=== PATIENT | female | born 1990 | race Caucasian/White ===

== ENCOUNTER 2020-07-06 14:48 | Emergency (ER) | payer MEDICAID ==
[2020-07-06] MEDS ORDERED: predniSONE 20 MG Tab PO ONE (14:49)
[2020-07-06] MEDS ORDERED: Acetaminophen/HYDROcodone 325-5 MG Tab PO ONE (14:49)
--- NOTE | 2020-07-06 15:25 | EDM.PDOC ---
ED HPI GENERAL MEDICAL PROBLEM - General Chief Complaint: Genitourinary Problem Stated Complaint: IN LOTS OF PAIN Time Seen by Provider: 07/06/20 15:20 Source of Information: Reports: Patient History Limitations: Reports: No Limitations - History of Present Illness INITIAL COMMENTS - FREE TEXT/NARRATIVE: pt with renal calculi , was seen on ................ and had Ct abd odne that confirmed 2 stones . one about 5-6 mm pt has not been able to pass stone, has pain in the flank radiating to the groin area Onset: Today Onset Date: 06/30/20 Duration: Getting Worse Location: Reports: Abdomen, Back Quality: Reports: Ache, Dull Improves with: Reports: Heat Therapy Worsens with: Reports: Movement Associated Symptoms: Reports: Malaise. 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) Right Lower Abdomen Pain Score (Numeric/FACES): 10 - Related Data Allergies Allergy/AdvReac Type Severity Reaction Status Date / Time codeine Allergy Other Verified 07/06/20 15:20 Home Meds: Home Meds Gabapentin [Neurontin] 600 mg PO DAILY 07/06/20 [History] Hydrocodone/Acetaminophen [Hydrocodon-Acetaminophen 5-325] 1 each PO Q6HR #10 tablet 07/06/20 [Rx] Tamsulosin [Tamsulosin 24 Hr] 0.4 mg PO DAILY #30 cap.er 07/06/20 [Rx] predniSONE [Prednisone] 40 mg PO DAILY #10 tablet 07/06/20 [Rx] ED ROS GENERAL - Review of Systems Review Of Systems: See Below Constitutional: Reports: No Symptoms, Fever, Malaise, Weakness, Fatigue. Denies: Chills HEENT: Reports: No Symptoms Respiratory: Reports: No Symptoms Cardiovascular: Reports: No Symptoms Endocrine: Reports: Fatigue GI/Abdominal: Reports: Abdominal Pain : Reports: Hematuria, Pain Musculoskeletal: Reports: Back Pain Skin: Reports: No Symptoms Neurological: Reports: No Symptoms Psychiatric: Reports: No Symptoms Hematologic/Lymphatic: Reports: No Symptoms ED EXAM, RENAL/ - Physical Exam Exam: See Below Exam Limited By: No Limitations General Appearance: Alert, WD/WN, Mild Distress (due to pain) Eye Exam: Bilateral Eye: EOMI Ears: Normal External Exam Nose: Normal Inspection Throat/Mouth: Normal Oropharynx Neck: Normal Inspection, Supple, Non-Tender Respiratory/Chest: Lungs Clear Cardiovascular: Regular Rate, Rhythm GI/Abdominal: Soft, Non-Tender Neurological: Alert, Oriented, CN II-XII Intact Psychiatric: Normal Affect, Normal Mood Skin Exam: Warm, Dry, Intact Lymphatic: No Adenopathy Course - Vital Signs Last Recorded V/S: Last Vital Signs Temp 36.3 C 07/06/20 15:00 Pulse 70 07/06/20 15:00 Resp 20 07/06/20 15:00 BP 142/91 H 07/06/20 15:00 Pulse Ox 99 07/06/20 15:00 - Orders/Labs/Meds Orders: Active Orders 24 hr Category Date Time Status Abdomen Pelvis wo Cont [CT] Stat Exams 07/06/20 15:23 Taken Sodium Chloride 0.9% [Normal Saline] 1,000 ml Med 07/06/20 15:30 Active IV ASDIRECTED Sodium Chloride 0.9% [Saline Flush] Med 07/06/20 15:30 Active 10 ml FLUSH ASDIRECTED PRN Medication Orders Sodium Chloride (Normal Saline) 1,000 mls @ 999 mls/hr IV ASDIRECTED KIET Last Admin: 07/06/20 15:36 Dose: 999 mls/hr Documented by: SUN Sodium Chloride (Saline Flush) 10 ml FLUSH ASDIRECTED PRN PRN Reason: IV Use Last Admin: 07/06/20 15:30 Dose: 10 ml Documented by: SUN Labs: Laboratory Tests 07/06/20 07/06/20 Range/Units 17:10 17:10 WBC 10.4 H (3.0-10.3) x10-3/uL RBC 4.32 (3.60-5.20) x10(6)uL Hgb 13.4 (11.4-15.5) g/dL Hct 40.2 (34.2-48.2) % MCV 93.1 (76.7-100.5) fL MCH 30.9 (23.9-33.9) pg MCHC 33.2 (31.9-34.8) g/dL RDW 13.1 (12.3-16.5) % Plt Count 383 (151-488) x10(3)uL MPV 7.5 (7.1-12.4) fL Neut % (Auto) 65.7 (30.8-76.2) % Lymph % (Auto) 20.6 (18.4-52.1) % Young % (Auto) 5.6 (4.4-15.7) % Eos % (Auto) 7.2 (0.6-8.1) % Baso % (Auto) 0.9 (0.2-1.5) % Neut # (Auto) 6.8 H (1.5-6.3) x10-3/uL Lymph # (Auto) 2.1 (1.0-4.4) x10-3/uL Young # (Auto) 0.6 (0.3-1.0) x10-3/uL Eos # (Auto) 0.7 (0.0-0.8) x10-3/uL Baso # (Auto) 0.1 (0.0-0.1) x10-3/uL Sodium 139 (135-145) mmol/L Potassium 4.1 (3.5-5.3) mmol/L Chloride 105 (100-110) mmol/L Carbon Dioxide 27 (21-32) mmol/L BUN 12 (7-18) mg/dL Creatinine 1.2 H (0.55-1.02) mg/dL Est Cr Clr Drug Dosing 56.19 mL/min Estimated GFR (MDRD) 52 L (>60) BUN/Creatinine Ratio 10.0 (9-20) Glucose 97 (80-116) mg/dL Calcium 8.0 L (8.6-10.2) mg/dL Meds: Medications Generic Name Dose Route Start Last Admin Trade Name Freq PRN Reason Stop Dose Admin Sodium Chloride 1,000 mls @ 999 mls/hr 07/06/20 15:30 07/06/20 15:36 Normal Saline IV 999 mls/hr ASDIRECTED KIET Administration Sodium Chloride 10 ml 07/06/20 15:30 07/06/20 15:30 Saline Flush FLUSH 10 ml ASDIRECTED PRN Administration IV Use Discontinued Medications Generic Name Dose Route Start Last Admin Trade Name Freq PRN Reason Stop Dose Admin Hydrocodone Bitart/Acetaminophen 1 tab 07/06/20 17:23 07/06/20 17:32 Almyra 325-5 Mg PO 07/06/20 17:24 1 tab ONETIME ONE Administration Ketorolac Tromethamine 30 mg 07/06/20 15:21 07/06/20 15:36 Toradol IVPUSH 07/06/20 15:22 30 mg ONETIME ONE Administration Methylprednisolone Sodium Succinate 125 mg 07/06/20 16:17 07/06/20 16:27 Solu-Medrol IM 07/06/20 16:18 Not Given ONETIME ONE Methylprednisolone Sodium Succinate 125 mg 07/06/20 16:26 07/06/20 16:27 Solu-Medrol IVPUSH 07/06/20 16:27 125 mg ONETIME ONE Administration Morphine Sulfate 2 mg 07/06/20 15:22 07/06/20 15:36 Morphine IVPUSH 07/06/20 15:23 2 mg ONETIME ONE Administration Tamsulosin HCl 0.4 mg 07/06/20 16:16 07/06/20 16:27 Flomax PO 07/06/20 16:17 0.4 mg ONETIME ONE Administration - Re-Assessments/Exams Free Text/Narrative Re-Assessment/Exam: 07/06/20 16:46 pt givne ivf toradol , flomax ans solumedrol CT of the abd done: still has 5mm stone in the right UVJ 3mm stone in the left kidney pain level did improve will be discharged home to follow up with urologist Departure - Departure Time of Disposition: 17:40 Disposition: Home, Self-Care 01 Condition: Fair Clinical Impression: Renal calculus, bilateral, Hydronephrosis - Discharge Information *PRESCRIPTION DRUG MONITORING PROGRAM REVIEWED*: Not Applicable *COPY OF PRESCRIPTION DRUG MONITORING REPORT IN PATIENT DALE: Not Applicable Prescriptions: Tamsulosin [Tamsulosin 24 Hr] 0.4 mg PO DAILY #30 cap.er Hydrocodone/Acetaminophen [Hydrocodon-Acetaminophen 5-325] 1 each PO Q6HR #10 tablet predniSONE [Prednisone] 40 mg PO DAILY #10 tablet Instructions: Kidney Stones, [id number], Hydronephrosis Referrals: PCP,None [Primary Care Provider] - Forms: ED Department Discharge Additional Instructions: Keep increased fluid intake Keep appointment with Urologist on Tueday Call ER with any concerns Sepsis Event Note (ED) - Focused Exam Vital Signs: Vital Signs Temp Pulse Resp BP Pulse Ox 07/06/20 15:00 36.3 C 70 20 142/91 H 99 - My Orders Last 24 Hours: My Active Orders 07/06/20 15:23 Abdomen Pelvis wo Cont [CT] Stat 07/06/20 15:30 Sodium Chloride 0.9% [Normal Saline] 1,000 ml IV ASDIRECTED Sodium Chloride 0.9% [Saline Flush] 10 ml FLUSH ASDIRECTED PRN - Assessment/Plan Last 24 Hours: My Active Orders 07/06/20 15:23 Abdomen Pelvis wo Cont [CT] Stat 07/06/20 15:30 Sodium Chloride 0.9% [Normal Saline] 1,000 ml IV ASDIRECTED Sodium Chloride 0.9% [Saline Flush] 10 ml FLUSH ASDIRECTED PRN
[2020-07-06] MEDS: Sodium Chloride 0.9% 10 ML Syringe FLUSH PRN (15:30)
[2020-07-06] MEDS: Morphine 2 MG/ML SYRINGE IVPUSH ONE (15:36)
[2020-07-06] MEDS: Sodium Chloride 0.9% 1,000 ML IV SCH (15:36)
[2020-07-06] MEDS: Ketorolac 30 MG/ML SDV IVPUSH ONE (15:36)
[2020-07-06] MEDS: methylPREDNISolone Sodium Succinate 125 MG/2 ML SDV IM ONE (16:27)
[2020-07-06] MEDS: Tamsulosin 0.4 MG Cap.ER PO ONE (16:27)
[2020-07-06] MEDS: methylPREDNISolone Sodium Succinate 125 MG/2 ML SDV IVPUSH ONE (16:27)
[2020-07-06] MEDS: Acetaminophen/HYDROcodone 325-5 MG Tab PO ONE (17:32)
== END 2020-07-06 18:00 | disposition home or self-care (01) ==
LOC: FB.ED 14:48
DX: N13.2 Hydronephrosis with renal and ureteral calculous obstruction (principal); Z88.5 Allergy status to narcotic agent; Z79.899 Other long term (current) drug therapy
CPT/HCPCS: 36415; 74176; 80048; 85025; 96374; 96375; 99284; A9270; J1885; J2270; J2930; J7030; J7512

== ENCOUNTER 2020-10-13 22:49 | Emergency (ER) | payer MEDICAID ==
[2020-10-13] MEDS ORDERED: guaiFENesin/Dextromethorphan 100-10 MG/5 ML Soln 5 ML Cup PO STA (23:11)
--- NOTE | 2020-10-13 23:11 | EDM.PDOC ---
ED HPI GENERAL MEDICAL PROBLEM - General Stated Complaint: BAD HEAD COLD Time Seen by Provider: 10/13/20 23:00 Source of Information: Reports: Patient History Limitations: Reports: No Limitations - History of Present Illness INITIAL COMMENTS - FREE TEXT/NARRATIVE: States she has been ill for about one week with cold symptoms. 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 - Related Data Allergies Allergy/AdvReac Type Severity Reaction Status Date / Time codeine Allergy Other Verified 07/06/20 15:20 Home Meds: Home Meds Gabapentin [Neurontin] 600 mg PO DAILY 07/06/20 [History] Hydrocodone/Acetaminophen [Hydrocodon-Acetaminophen 5-325] 1 each PO Q6HR #10 tablet 07/06/20 [Rx] Tamsulosin [Tamsulosin 24 Hr] 0.4 mg PO DAILY #30 cap.er 07/06/20 [Rx] predniSONE [Prednisone] 40 mg PO DAILY #10 tablet 07/06/20 [Rx] Azithromycin [Zithromax] 500 mg PO DAILY #6 tab 10/14/20 [Rx] Benzonatate [Tessalon Perle] 100 mg PO TID #30 capsule 10/14/20 [Rx] guaiFENesin [Guaifenesin ER] 600 mg PO BID #30 tab.er.12h 10/14/20 [Rx] predniSONE [Prednisone] 20 mg PO DAILY #5 tablet 10/14/20 [Rx] Past Medical History Genitourinary History: Reports: Hydronephrosis, Renal Calculus Social & Family History - Caffeine Use Caffeine Use: Reports: Soda ED ROS ENT - Review of Systems Review Of Systems: See Below Constitutional: Reports: Fever, Chills, Malaise, Weakness, Fatigue HEENT: Reports: Sinus Problem Respiratory: Reports: Cough Cardiovascular: Reports: No Symptoms Endocrine: Reports: No Symptoms GI/Abdominal: Reports: No Symptoms Musculoskeletal: Reports: No Symptoms Skin: Reports: No Symptoms Neurological: Reports: No Symptoms Psychiatric: Reports: No Symptoms ED EXAM, ENT - Physical Exam Exam: See Below Exam Limited By: No Limitations General Appearance: Alert, WD/WN, No Apparent Distress Eye Exam: Bilateral Eye: EOMI Ears: TM Bulging Nose: Nasal Discharge, Nasal Tenderness Mouth/Throat: Pharyngeal Erythema, Throat Pain, Tonsillar Erythema Head: Atraumatic, Normocephalic Neck: Supple, Non-Tender Respiratory/Chest: Lungs Clear, Normal Breath Sounds Cardiovascular: Regular Rate, Rhythm GI/Abdominal: Soft, Non-Tender Back: Normal Inspection, Full Range of Motion Extremities: Normal Inspection Neurological: Alert, Oriented, CN II-XII Intact, Normal Cognition Psychiatric: Normal Affect, Normal Mood Skin: Warm, Dry, Intact Lymphatic: No Adenopathy Course - Orders/Labs/Meds Labs: Laboratory Tests 10/13/20 Range/Units 23:15 SARS-CoV-2 RNA (SAMANTA) Negative (NEGATIVE) Meds: Medications Discontinued Medications Generic Name Dose Route Start Last Admin Trade Name Kristin PRN Reason Stop Dose Admin Guaifenesin/Phenylephrine HCl 10 ml 10/13/20 23:11 10/13/20 23:41 Guaifenesin/Dextromethorphan 100-10 Mg/5 Ml Soln 5 Ml Cup PO 10/13/20 23:12 10 ml NOW STA Administration - Re-Assessments/Exams Free Text/Narrative Re-Assessment/Exam: 10/14/20 00:52 pt screened for COVID : negative will treat as sinusitis Departure - Departure Time of Disposition: 01:00 Disposition: Home, Self-Care 01 Condition: Fair Clinical Impression: Maxillary sinusitis, acute - Discharge Information *PRESCRIPTION DRUG MONITORING PROGRAM REVIEWED*: Not Applicable *COPY OF PRESCRIPTION DRUG MONITORING REPORT IN PATIENT DALE: Not Applicable Instructions: Sinusitis, Adult, [id number] Forms: ED Return to Work/School Form Additional Instructions: 1) continue with ibuprofen 600mg 3 times daily as needed 2) Warm compress to the affected areas of the face 3) Follow up with your PCP
[2020-10-14] MEDS ORDERED: Azithromycin 500 MG Tab PO ONE (00:44)
== END 2020-10-14 01:10 | disposition home or self-care (01) ==
LOC: FB.ED 22:49
DX: J01.00 Acute maxillary sinusitis, unspecified (principal); Z20.822 Contact with and (suspected) exposure to COVID-19; Z88.5 Allergy status to narcotic agent; Z79.899 Other long term (current) drug therapy
CPT/HCPCS: 99283; A9270-GY; U0002

== ENCOUNTER 2021-06-08 17:42 | Emergency (ER) | payer MEDICAID ==
[2021-06-08] MEDS ORDERED: Ondansetron 4 MG Tab.DIS PO ONE (18:10)
[2021-06-08] MEDS ORDERED: Albuterol/Ipratropium 3.0-0.5 MG/3 ML Neb Soln NEB ONE (18:10)
--- NOTE | 2021-06-08 19:48 | EDM.PDOC ---
ED HPI GENERAL MEDICAL PROBLEM - General Chief Complaint: Respiratory Problem Stated Complaint: COVID Time Seen by Provider: 06/08/21 18:10 Source of Information: Reports: Patient History Limitations: Reports: No Limitations - History of Present Illness INITIAL COMMENTS - FREE TEXT/NARRATIVE: Patient presented to the ED because of N/V/D, cough and cold for 2 days. She also c/o dyspnea even with oxygen saturation of 92% on RA. - Related Data Allergies Allergy/AdvReac Type Severity Reaction Status Date / Time codeine Allergy Throat Verified 10/14/20 04:11 [facility] Home Meds: Home Meds Gabapentin [Neurontin] 600 mg PO BEDTIME 07/06/20 [History] Albuterol Sulfate [Albuterol Sulfate Hfa] 2 puff INH Q4H PRN 10/14/20 [History] Azithromycin [Zithromax] 500 mg PO DAILY #6 tab 10/14/20 [Rx] Benzonatate [Tessalon Perle] 100 mg PO TID #30 capsule 10/14/20 [Rx] Ibuprofen 200 mg PO ASDIRECTED PRN 10/14/20 [History] Sertraline [Zoloft] 100 mg PO DAILY 10/14/20 [History] guaiFENesin [Guaifenesin ER] 600 mg PO BID #30 tab.er.12h 10/14/20 [Rx] predniSONE [Prednisone] 20 mg PO DAILY #5 tablet 10/14/20 [Rx] Albuterol/Ipratropium [DuoNeb 3.0-0.5 MG/3 ML] 3 ml INH Q4H PRN #90 ml 06/08/21 [Rx] Past Medical History Respiratory History: Reports: Bronchitis, Recurrent Genitourinary History: Reports: Hydronephrosis, Renal Calculus, Other (See Below) Neurological History: Reports: Other (See Below) Other Neuro History: Restless legs, takes Gabapentin. - Infectious Disease History Infectious Disease History: Reports: Chicken Pox - Past Surgical History HEENT Surgical History: Reports: Tonsillectomy Female Surgical History: Reports: Ureteral Stent Social & Family History - Tobacco Use Tobacco Use Status *Q: Current Every Day Tobacco User Years of Tobacco use: 8 Packs/Tins Daily: 0.5 - Caffeine Use Caffeine Use: Reports: Soda ED ROS GENERAL - Review of Systems Review Of Systems: See Below Constitutional: Reports: No Symptoms HEENT: Reports: No Symptoms Respiratory: Reports: Shortness of Breath, Cough Cardiovascular: Reports: No Symptoms Endocrine: Reports: No Symptoms GI/Abdominal: Reports: Diarrhea, Nausea, Vomiting : Reports: No Symptoms Musculoskeletal: Reports: No Symptoms Skin: Reports: No Symptoms Neurological: Reports: No Symptoms ED EXAM, GENERAL - Physical Exam Exam: See Below Exam Limited By: No Limitations General Appearance: Alert, No Apparent Distress Ears: Normal External Exam, Normal Canal, Hearing Grossly Normal Nose: Nasal Drainage Throat/Mouth: Normal Inspection, Normal Lips, Normal Teeth, Normal Gums, Normal Oropharynx, Normal Voice Head: Atraumatic, Normocephalic Neck: Normal Inspection, Supple, Non-Tender, Full Range of Motion Respiratory/Chest: No Respiratory Distress, Rhonchi, Wheezing Cardiovascular: Normal Peripheral Pulses, Regular Rate, Rhythm, No Edema, No Gallop, No JVD, No Murmur, No Rub GI/Abdominal: Normal Bowel Sounds, Soft, Non-Tender, No Organomegaly, No Distention, No Abnormal Bruit, No Mass, Pelvis Stable Back Exam: Normal Inspection, Full Range of Motion Extremities: Normal Inspection, Normal Range of Motion, Non-Tender, No Pedal Edema, Normal Capillary Refill Neurological: Alert, Oriented, CN II-XII Intact Psychiatric: Normal Affect, Normal Mood Skin Exam: Warm Course - Vital Signs Text/Narrative:: Lab result was reviewed and discussed with patient Zofran ODT 4 mg PO x1 Duoneb x1 Last Recorded V/S: Last Vital Signs Temp 36.9 C 06/08/21 17:55 Pulse 116 H 06/08/21 18:19 Resp 18 06/08/21 17:55 BP 119/61 06/08/21 17:55 Pulse Ox 93 L 06/08/21 17:55 - Orders/Labs/Meds Labs: Laboratory Tests 06/08/21 Range/Units 19:08 SARS-CoV-2 RNA (SAMANTA) Negative (NEGATIVE) Meds: Medications Discontinued Medications Generic Name Dose Route Start Last Admin Trade Name Freq PRN Reason Stop Dose Admin Albuterol/Ipratropium 3 ml 06/08/21 18:10 06/08/21 18:19 Albuterol/Ipratropium 3.0-0.5 Mg/3 Ml Neb Soln NEB 06/08/21 18:11 3 ml ONETIME ONE Administration Ondansetron HCl 4 mg 06/08/21 18:10 06/08/21 18:19 Ondansetron 4 Mg Tab.Dis PO 06/08/21 18:11 4 mg ONETIME ONE Administration Departure - Departure Time of Disposition: 19:40 Disposition: Home, Self-Care 01 Condition: Good Clinical Impression: Acute bronchitis, Gastroenteritis - Discharge Information Prescriptions: Albuterol/Ipratropium [DuoNeb 3.0-0.5 MG/3 ML] 3 ml INH Q4H PRN #90 ml PRN Reason: shortness of breath Instructions: Acute Bronchitis, Adult, [id number] Referrals: PCP,None [Primary Care Provider] - Forms: ED Department Discharge Additional Instructions: Please read discharge instructions on acute bronchitis and viral gastroenteritis Increase oral fluids 2 liters daily Frequent hand washing Imodium 2 tablets Q 6 H as needed for loose stools Duoneb every 4-6 hours as needed for shortness of breath Follow up as needed
== END 2021-06-08 20:00 | disposition home or self-care (01) ==
LOC: FB.ED 17:42
DX: K52.9 Noninfective gastroenteritis and colitis, unspecified (principal); J20.9 Acute bronchitis, unspecified; Z88.5 Allergy status to narcotic agent; Z72.0 Tobacco use; Z20.822 Contact with and (suspected) exposure to COVID-19
CPT/HCPCS: 71045; 87635; 87804; 94640; 99285; A9270; J7620-GY; U0002

== ENCOUNTER 2021-07-20 18:23 | Emergency (ER) | payer MEDICAID ==
--- NOTE | 2021-07-20 19:05 | EDM.PDOC ---
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 She is due in September 2021. This is her first . She has had a circumferential wheezing tightness/pain in her lower abdomen worse on the right than on the left. These sensations started early this morning but have increased in intensity and frequency and now are approximately 10 minutes apart. She denies fever, chills, chest pain, shortness of breath, change in bowel or bladder habits. she is not aware of any vaginal discharge or bleeding. - Related Data Allergies Allergy/AdvReac Type Severity Reaction Status Date / Time codeine Allergy Throat Verified 10/14/20 04:11 [facility] Home Meds: Home Meds Gabapentin [Neurontin] 600 mg PO BEDTIME 07/06/20 [History] Albuterol Sulfate [Albuterol Sulfate Hfa] 2 puff INH Q4H PRN 10/14/20 [History] Azithromycin [Zithromax] 500 mg PO DAILY #6 tab 10/14/20 [Rx] Benzonatate [Tessalon Perle] 100 mg PO TID #30 capsule 10/14/20 [Rx] Ibuprofen 200 mg PO ASDIRECTED PRN 10/14/20 [History] Sertraline [Zoloft] 100 mg PO DAILY 10/14/20 [History] guaiFENesin [Guaifenesin ER] 600 mg PO BID #30 tab.er.12h 10/14/20 [Rx] predniSONE [Prednisone] 20 mg PO DAILY #5 tablet 10/14/20 [Rx] Albuterol/Ipratropium [DuoNeb 3.0-0.5 MG/3 ML] 3 ml INH Q4H PRN #90 ml 06/08/21 [Rx] Past Medical History Respiratory History: Reports: Bronchitis, Recurrent Genitourinary History: Reports: Hydronephrosis, Renal Calculus, Other (See Below) Neurological History: Reports: Other (See Below) Other Neuro History: Restless legs, takes Gabapentin. - Infectious Disease History Infectious Disease History: Reports: Chicken Pox - Past Surgical History HEENT Surgical History: Reports: Tonsillectomy Female Surgical History: Reports: Ureteral Stent Social & Family History - Caffeine Use Caffeine Use: Reports: Soda ED ROS GENERAL - Review of Systems Review Of Systems: See Below Constitutional: Reports: No Symptoms HEENT: Reports: No Symptoms Respiratory: Reports: No Symptoms Endocrine: Reports: No Symptoms GI/Abdominal: Reports: Abdominal Pain : Reports: No Symptoms Musculoskeletal: Reports: No Symptoms, Back Pain Skin: Reports: No Symptoms Neurological: Reports: No Symptoms Psychiatric: Reports: Anxiety Hematologic/Lymphatic: Reports: No Symptoms Immunologic: Reports: No Symptoms ED EXAM - Physical Exam Exam: See Below Exam Limited By: No Limitations General Appearance: Anxious Eye Exam: Bilateral Eye: EOMI Head: Atraumatic, Normocephalic Respiratory/Chest: No Respiratory Distress, Lungs Clear Cardiovascular: Regular Rate, Rhythm GI/Abdominal Exam: Normal Bowel Sounds, Distended, Tender (Female) Exam: No: Cervical Dilatation, Cervical Discharge, Vaginal Lesions Heart Tones: Present Heart Tones per Min: 132 Movement: Active Back Exam: CVA Tenderness (R) Extremities: Normal Inspection Neurological: Alert, Oriented, CN II-XII Intact, Normal Cognition Psychiatric: Anxious Skin Exam: Warm, Dry Course - Vital Signs Text/Narrative:: Spoke with obstetrics on the phone and they recommended immediate transfer to [facility] to labor and delivery. Exam the cervix showed no obvious dilation and there was no discharge or bleeding in the vaginal vault. Last Recorded V/S: Last Vital Signs Temp 36.7 C 07/20/21 18:26 Pulse 99 07/20/21 18:26 Resp 16 07/20/21 18:26 BP 102/71 07/20/21 18:26 Pulse Ox 99 07/20/21 18:26 Departure - Departure Time of Disposition: 19:06 Disposition: DC/Tfer to Acute Hospital 02 Condition: Fair Clinical Impression: labor in third trimester Clinical Impression: (Ruled Out): labor in second trimester - Discharge Information *PRESCRIPTION DRUG MONITORING PROGRAM REVIEWED*: Not Applicable *COPY OF PRESCRIPTION DRUG MONITORING REPORT IN PATIENT DALE: Not Applicable Instructions: Labor, [id number] Referrals: PCP,None [Primary Care Provider] - Sepsis Event Note (ED) - Evaluation Sepsis Screening Result: No Definite Risk - Focused Exam Vital Signs: Vital Signs Temp Pulse Resp BP Pulse Ox 12/19/21 18:26 36.7 C 99 16 102/71 99
== END 2021-07-20 19:25 ==
LOC: FB.ED 18:23
DX: O60.03 Preterm labor without delivery, third trimester (principal); Z88.5 Allergy status to narcotic agent; Z3A.28 28 weeks gestation of pregnancy
CPT/HCPCS: 99284

== ENCOUNTER 2022-02-16 22:56 | Emergency (ER) | payer MEDICAID ==
[2022-02-16] MEDS ORDERED: Lidocaine 1% 20 ML MDV INFILT ONE (22:57)
[2022-02-16] MEDS ORDERED: Diphtheria,Pertussis(Acell),Tetanus Vaccine 0.5 ML Syringe IM ONE (23:14)
[2022-02-16] MEDS ORDERED: Bacitracin Oint 1 GM U/D Packet TOP ONE (23:15)
[2022-02-16] MEDS ORDERED: Lidocaine 1% 20 ML MDV INJECT ONE (23:15)
== END 2022-02-16 23:50 | disposition home or self-care (01) ==
LOC: FB.ED 22:56
DX: S51.811A Laceration without foreign body of right forearm, initial encounter (principal); Z88.5 Allergy status to narcotic agent; Z91.040 Latex allergy status; Z23 Encounter for immunization; W26.8XXA Contact with other sharp object(s), not elsewhere classified, initial encounter
CPT/HCPCS: 12002; 90471; 90715; 99282-25

== ENCOUNTER 2022-04-21 05:29 | Emergency (ER) | payer MEDICAID ==
[2022-04-21] MEDS ORDERED: Phenazopyridine 95 MG Tab PO STA (06:44)
[2022-04-21] MEDS ORDERED: Cephalexin 500 MG Cap PO ONE (06:50)
== END 2022-04-21 07:17 | disposition home or self-care (01) ==
LOC: FB.ED 05:29
DX: R31.29 Other microscopic hematuria (principal); R30.0 Dysuria; Z72.0 Tobacco use; Z88.5 Allergy status to narcotic agent; Z91.040 Latex allergy status; Z79.899 Other long term (current) drug therapy
CPT/HCPCS: 51798; 81001; 87086; 87088; 87186; 99284; A9270